=== PATIENT | female | born 1940 | race African-American/Black ===

== ENCOUNTER 2018-06-08 20:48 | Emergency (ER) | payer MEDICAID ==
[~2018-06-08] VITALS: Ht 160 cm; Wt 77.1 kg
[2018-06-08 21:10] VITALS: BP 110/59
[2018-06-08] MEDS ORDERED: GABAPENTIN100 MG ORAL (21:23)
[2018-06-08] MEDS ORDERED: FUROSEMIDE20 M1 ORAL (21:23)
--- NOTE | 2018-06-08 21:23 | Emergency Room Report ---
History of Present Illness General Chief Complaint: Pain Source: Patient Present Illness HPI This is a 77-year-old female with history of diabetes. She presents with bilateral leg pain. Her pain is chronic in nature but worse in the last couple days. No trauma. No fever chills but no nausea no vomiting. Slight swelling which is worse than usual. Denies any other complaint. Pain is throbbing and aching in nature. Constant in nature. 8 out of 10. No fever or chills. No other complaint. Nothing made it better. Nothing made it worse. Allergies: Coded Allergies: No Known Allergies (Unverified , 06/08/18) Patient History Past Medical History: see triage record, old chart reviewed, DM, HTN Past Surgical History: other Pertinent Family History: none Social History: Denies: smoking Last Menstrual Period: na Now: No Immunizations: other Reviewed Nursing Documentation: PMH: Agreed; PSxH: Agreed Nursing Documentation-PMH Past Medical History: No History, Except For Hx Diabetes: Yes Review of Systems Eye: Denies: eye pain, blurred vision ENT: Denies: ear pain, nose congestion, throat swelling Respiratory: Denies: cough, shortness of breath Cardiovascular: Denies: chest pain, palpitations Gastrointestinal: Denies: abdominal pain, diarrhea, nausea, vomiting Musculoskeletal: Reports: muscle pain; Denies: back pain, joint pain Skin: Denies: rash Neurological: Denies: headache, numbness Endocrine: Denies: increased thirst, increased urine Hematologic/Lymphatic: Denies: easy bruising All Other Systems: negative except mentioned in HPI Physical Exam Vital Signs Date Time Temp Pulse Resp B/P (MAP) Pulse Ox O2 Delivery O2 Flow Rate FiO2 06/08/18 21:02 98.2 75 18 154/77 97 Room Air vitals with high blood pressure Sp02 EP Interpretation: reviewed, normal General Appearance: well appearing, no apparent distress, alert Head: normocephalic, atraumatic Eyes: bilateral eye PERRL, bilateral eye EOMI ENT: hearing grossly normal, normal pharynx Neck: full range of motion, supple, no meningismus Respiratory: chest non-tender, lungs clear, normal breath sounds Cardiovascular #1: regular rate, rhythm, no murmur Gastrointestinal: normal bowel sounds, non tender, no mass, no organomegaly, no bruit, non-distended Musculoskeletal: back normal, gait/station normal, normal range of motion, other - Trace pitting edema Psychiatric: mood/affect normal Skin: warm/dry Medical Decision Making Diagnostic Impression: Primary Impression: Diabetic peripheral neuropathy Additional Impression: Pedal edema ER Course Patient presents with exacerbation of her diabetic neuropathy. May be worsened because of the pedal edema. Lungs are clear. Oxidation is normal. No evidence of CHF. We'll discharge home. I see no evidence of DVT or infection. Last Vital Signs Date Time Temp Pulse Resp B/P (MAP) Pulse Ox O2 Delivery O2 Flow Rate FiO2 06/08/18 21:02 98.2 75 18 154/77 97 Room Air Status: unchanged Disposition: HOME, SELF-CARE Condition: Stable Scripts Gabapentin* (GABAPENTIN*) 100 Mg Capsule 100 MG ORAL THREE TIMES A DAY, #60 CAP Prov: Nacho Irizarry MD 06/08/18 Furosemide* (LASIX*) 20 Mg Tablet 20 MG ORAL DAILY, #7 TAB Prov: Nacho Irizarry MD 06/08/18 Additional Instructions: Rest. Elevate leg. Controll your diabetes. Follow-up with your doctor in 7 days. Return if worse. Nacho Irizarry MD Jun 08, 2018 21:23
[2018-06-08] MEDS ORDERED: Tylenol #3 tab (300mg/30mg) ORAL ONE (21:30)
[2018-06-08 21:37] VITALS: BP 110/59
== END 2018-06-08 22:22 | disposition home or self-care (01) ==
LOC: EMR 21:30
DX: E11.42 Type 2 diabetes mellitus with diabetic polyneuropathy (principal); R60.9 Edema, unspecified; I10 Essential (primary) hypertension; M79.10 Myalgia, unspecified site
CPT/HCPCS: 99283

== ENCOUNTER 2018-08-08 14:54 | Emergency (ER) | payer MEDICAID ==
[~2018-08-08] VITALS: Ht 162.6 cm; Wt 86.2 kg
[~2018-08-08 14:54] MED LIST: FUROSEMIDE20 M1 ORAL; GABAPENTIN100 MG ORAL
[2018-08-08] MEDS ORDERED: METFORMIN HCL850 M1 ORAL (14:57)
[2018-08-08] MEDS ORDERED: BENAZEPRIL HCL5 MG ORAL (14:57)
--- NOTE | 2018-08-08 15:05 | NUR ---
ED Nurse Note:pt. was BIBA for chronic left leg pain
--- NOTE | 2018-08-08 15:34 | Emergency Room Report ---
History of Present Illness General Chief Complaint: Pain Present Illness HPI 77-year-old female patient presents the ER complaining of bilateral leg pain times 1 day. Patient reports bilateral leg swelling, states swelling is been present for "weeks and weeks". Denies history of DVT. Reports history of hypertension, states does not take water pill or Lasix. Reports pain is worse in the left leg. Reports pain in calf. Denies shortness of breath. Denies history of CHF. Denies abdominal pain. Reports symptoms began earlier today after eating [employer]. Denies fever, chest pain, abdominal pain. Denies other acute aggravating or relieving factors. Denies bleeding or drainage. Allergies: Coded Allergies: No Known Allergies (Unverified , 06/08/18) Patient History Past Medical History: see triage record Reviewed Nursing Documentation: PMH: Agreed; PSxH: Agreed Nursing Documentation-PMH Hx Hypertension: Yes Hx Diabetes: Yes Review of Systems All Other Systems: negative except mentioned in HPI Physical Exam Vital Signs Date Time Temp Pulse Resp B/P (MAP) Pulse Ox O2 Delivery O2 Flow Rate FiO2 08/08/18 14:51 98.4 102 24 172/81 96 Room Air Sp02 EP Interpretation: reviewed, normal General Appearance: well appearing, no apparent distress, alert, GCS 15, non- toxic Head: normocephalic, atraumatic Eyes: bilateral eye normal inspection, bilateral eye PERRL ENT: hearing grossly normal, normal pharynx, no angioedema, normal voice, uvula midline, moist mucus membranes Neck: full range of motion Respiratory: lungs clear, normal breath sounds, no rhonchi, no respiratory distress, no accessory muscle use, no wheezing, speaking full sentences Cardiovascular #1: regular rate, rhythm, edema Cardiovascular #2: 2+ dorsalis pedis (R), 2+ dorsalis pedis (L) Gastrointestinal: non tender, soft, no mass, non-distended, no guarding, no rebound Musculoskeletal: back normal, digits/nails normal, gait/station normal, normal range of motion, Elpidio's Sign negative, tender - Left calf Neurologic: alert, oriented x3, responsive, motor strength/tone normal, sensory intact Psychiatric: mood/affect normal Skin: no rash, other - no erythema or edema Lymphatic: no adenopathy Medical Decision Making PA Attestation Dr. Priest is my supervising Physician whom patient management has been discussed with. Diagnostic Impression: Primary Impression: Bilateral edema of lower extremity Additional Impressions: Anemia Hypertension ER Course Pt. presents to the ED c/o bilateral leg pain and swelling. Ddx considered but are not limited to chronic edema, CHF exacerbation, DVT, cellulitis, peripheral vascular disease, venous stasis. Vital signs: are WNL, pt. is afebrile Blood pressure mildly elevated at this time, will continue to monitor. Denies chest pain, shortness of breath, vision changes, does not require acute intervention at ER at this time. Follow with primary care provider discuss further treatment and referral. Advised on low-sodium diet, advised on diet and exercise. ER COURSE: Provided with pain medication. CBC and CMP unremarkable, mild anemia noted, does not require transfusion at this time. Follow-up with primary care provider for further treatment and referral. Chest x-ray negative for acute disease, BNP not elevated, low suspicion for CHF exacerbation Venous duplex ultrasound negative for DVT Likely chronic edema causing pain symptoms. Patient blood pressure elevated, will provide patient with HCTZ for leg swelling and high blood pressure symptoms. Follow-up with primary care provider for further treatment and referral to cardiology, discuss hypertension and edema symptoms at time. Take Tylenol for pain symptoms. Patient resting comfortably, in no acute distress, nontoxic appearing. Patient seen and evaluated by Dr. Priest, agrees with assessment treatment plan. DISCHARGE: At this time pt is stable for d/c to home. Patient is resting comfortably, in no acute distress, nontoxic appearing, talking without difficulty. Patient to take medications as instructed Will provide with patient care instructions and any necessary prescriptions. Care plan and follow-up instructions provided. Patient instructed to follow-up with primary care provider in 3 - 5 days. Patient questions asked and answered. Patient reports understanding and agreement to treatment plan. ER precautions given. Patient instructed to return to ER immediately for any new or worsening of symptoms including but not limited to increasing SOB, persistent fever, chest pain, intractable vomiting. - Please note that this Emergency Department Report was dictated using [employer] drafter technology software, occasionally this can lead to erroneous entry secondary to interpretation by the dictation equipment. Labs Test 08/08/18 15:50 White Blood Count 4.4 K/UL (4.8-10.8) Red Blood Count 3.73 M/UL (4.20-5.40) Hemoglobin 11.5 G/DL (12.0-16.0) Hematocrit 34.3 % (37.0-47.0) Mean Corpuscular Volume 92 FL (80-99) Mean Corpuscular Hemoglobin 30.8 PG (27.0-31.0) Mean Corpuscular Hemoglobin Concent 33.5 G/DL (32.0-36.0) Red Cell Distribution Width 12.8 % (11.6-14.8) Platelet Count 267 K/UL (150-450) Mean Platelet Volume 6.9 FL (6.5-10.1) Neutrophils (%) (Auto) 59.0 % (45.0-75.0) Lymphocytes (%) (Auto) 22.7 % (20.0-45.0) Monocytes (%) (Auto) 9.5 % (1.0-10.0) Eosinophils (%) (Auto) 7.3 % (0.0-3.0) Basophils (%) (Auto) 1.6 % (0.0-2.0) Sodium Level 141 MMOL/L (136-145) Potassium Level 3.5 MMOL/L (3.5-5.1) Chloride Level 105 MMOL/L (98-107) Carbon Dioxide Level 29 MMOL/L (21-32) Anion Gap 7 mmol/L (5-15) Blood Urea Nitrogen 14 mg/dL (7-18) Creatinine 0.8 MG/DL (0.55-1.30) Estimat Glomerular Filtration Rate mL/min (>60) Glucose Level 120 MG/DL (74-106) Calcium Level 9.2 MG/DL (8.5-10.1) Total Bilirubin 0.2 MG/DL (0.2-1.0) Aspartate Amino Transf (AST/SGOT) 37 U/L (15-37) Alanine Aminotransferase (ALT/SGPT) 91 U/L (12-78) Alkaline Phosphatase 89 U/L (46-116) Pro-B-Type Natriuretic Peptide 105 pg/mL (0-125) Total Protein 7.4 G/DL (6.4-8.2) Albumin 3.4 G/DL (3.4-5.0) Globulin 4.0 g/dL Albumin/Globulin Ratio 0.9 (1.0-2.7) Chest X-Ray Diagnostic Results Chest X-Ray Diagnostic Results : Chest X-Ray Ordered: Yes # of Views/Limited/Complete: 1 View Indication: Chest Pain EP Interpretation: Yes PA Xray: Interpretation reviewed, by supervising MD, and agrees with findings. Interpretation: no consolidation, no effusion, no pneumothorax, no acute cardiopulmonary disease Impression: No acute disease EARNEST Horner PA-C CT/MRI/US Diagnostic Results CT/MRI/US Diagnostic Results : Imaging Test Ordered: Venous Duplex US Impression negative for DVT Last Vital Signs Date Time Temp Pulse Resp B/P (MAP) Pulse Ox O2 Delivery O2 Flow Rate FiO2 08/08/18 14:51 98.4 102 24 172/81 96 Room Air Status: improved Disposition: HOME, SELF-CARE Condition: Stable Scripts Hydrochlorothiazide* (HYDROCHLOROTHIAZIDE*) 25 Mg Tablet 25 MG ORAL DAILY, #30 TAB Prov: Elias Horner 08/08/18 Acetaminophen* (TYLENOL EXTRA STRENGTH*) 500 Mg Tablet 500 MG ORAL Q8H PRN for Prn Headache/Temp > 101, #30 TAB 0 Refills Prov: Elias Horner 08/08/18 Referrals: NON PHYSICIAN (PCP) Patient Instructions: Anemia, Nonspecific, DASH Eating Plan, Hypertension, Easy -to-Read, Peripheral Edema Additional Instructions: Followup with primary care provider in 3 -5 days. Discuss referral to cardiology at that time. Discuss medication to treat bilateral leg edema. Discuss anemia. Take medications as directed. Patient questions asked and answered. ER precautions given, patient instructed to return to ER immediately for any new or worsening of symptoms. Elias Horner Aug 08, 2018 15:34
--- NOTE | 2018-08-08 15:54 | NUR ---
ED Nurse Note:pt. was given pain meds and blood sent to labs
[2018-08-08 15:56] VITALS: BP 168/80
[2018-08-08 16:17] LABS: BASOPHILS % (AUTO) 1.6 % (0.0-2.0); EOSINOPHILS % (AUTO) 7.3 % (0.0-3.0); HEMATOCRIT 34.3 % (37.0-47.0); HEMOGLOBIN 11.5 G/DL (12.0-16.0); LYMPHOCYTES % (AUTO) 22.7 % (20.0-45.0); MEAN CORPUSCULAR VOLUME 92 FL (80-99); MONOCYTES % (AUTO) 9.5 % (1.0-10.0); PLATELET COUNT 267 K/UL (150-450); RED BLOOD COUNT 3.73 M/UL (4.20-5.40); RED CELL DISTRIBUTION WIDTH 12.8 % (11.6-14.8); WHITE BLOOD COUNT 4.4 K/UL (4.8-10.8)
[2018-08-08 16:23] LABS: ANION GAP 7 mmol/L (5-15); BLOOD UREA NITROGEN 14 mg/dL (7-18); CALCIUM 9.2 MG/DL (8.5-10.1); CARBON DIOXIDE 29 MMOL/L (21-32); CHLORIDE 105 MMOL/L (98-107); CREATININE 0.8 MG/DL (0.55-1.30); POTASSIUM 3.5 MMOL/L (3.5-5.1); SODIUM 141 MMOL/L (136-145)
[2018-08-08 16:34] LABS: ALANINE AMINOTRANSFERASE 91 U/L (12-78); ALBUMIN 3.4 G/DL (3.4-5.0); ALBUMIN/GLOBULIN RATIO 0.9 (1.0-2.7); ALKALINE PHOSPHATASE 89 U/L (46-116); ASPARTATE AMINO TRANSFERASE 37 U/L (15-37); BILIRUBIN,TOTAL 0.2 MG/DL (0.2-1.0)
[2018-08-08] MEDS ORDERED: HYDROCHLOROTHIA25 MG ORAL (18:02)
[2018-08-08] MEDS ORDERED: TYLENOL EXTRA500 MG ORAL (18:02)
[2018-08-08 18:06] VITALS: BP 165/79
--- NOTE | 2018-08-08 18:35 | NUR ---
ED Nurse Note:taxi voucher provided and pt. placed in taxi pt. was cleared for d/c by ER MD ,he received d/c instructions with prescriptions, verbalized understanding and left ER with steady gait and all personal belongings, ID bend removed
--- NOTE | 2018-08-09 12:38 | Diagnostic Imaging Report ---
Indication: Chest pain Comparison: None A single view chest radiograph was obtained. Findings: No definite infiltrate or pulmonary vascular congestion identified. The heart is enlarged. The aorta is mildly enlarged consistent with atherosclerotic vascular disease. The bones are osteopenic. Impression: No acute disease
== END 2018-08-08 18:58 | disposition home or self-care (01) ==
LOC: EDBD 14:54 → EMR 15:24
DX: R60.9 Edema, unspecified (principal); M79.661 Pain in right lower leg; M79.662 Pain in left lower leg; E11.9 Type 2 diabetes mellitus without complications; I10 Essential (primary) hypertension; D64.9 Anemia, unspecified
CPT/HCPCS: 36415; 71045; 80053; 83880; 85025; 93970; 99284